=== PATIENT | male | born 1970 | race Caucasian/White ===

== ENCOUNTER 2017-06-24 11:02 | Inpatient (IN) | payer OTHER ==
[2017-06-24] VITALS (11 sets, daily range): BP systolic 123–180; BP diastolic 79–114; PULSE 52–82; RESP 15–20; TEMP 97.1–98.3; O2SAT 92–99
[~2017-06-24] VITALS: Ht 195.6 cm; Wt 127.0 kg
[2017-06-24] MEDS ORDERED: ASPIRIN 81 MG CHEW TAB CHEW STA (11:11)
[2017-06-24] MEDS ORDERED: NITROGLYCERIN 0.4 MG SL 25 TABS/BTL SL ONE (11:12)
[2017-06-24] MEDS ORDERED: NITROGLYCERIN-D5W 50 MG/250 ML 250 ML IV ONE (11:15)
[2017-06-24] MEDS ORDERED: SODIUM CHLORIDE 0.9% FLUSH 10 ML FLUSH IVF PRN (11:15)
[2017-06-24] MEDS ORDERED: HEPARIN-D5W 25,000 U/250 ML 250 ML IV PRN (11:15)
[2017-06-24] MEDS ORDERED: SODIUM CHLORID 0.9% 500 ML INJ 500 ML IV ONE (11:15)
[2017-06-24 11:41] LABS: BASOPHIL # 0.1 TH/MM3 (0-0.2); BASOPHIL % 0.8 % (0.0-2.0); EOSINOPHIL # 0.2 TH/MM3 (0-0.4); EOSINOPHIL % 2.8 % (0.0-4.0); HEMATOCRIT 43.1 % (39.0-51.0); HEMO FLAGS DIFF FINAL; LYMPH % 27.7 % (9.0-44.0); LYMPHOCYTE # 2.3 TH/MM3 (1.0-4.8); MEAN CELL VOLUME 88.1 FL (80.0-100.0); MEAN CORPUSCULAR HGB CONC 35.2 % (32.0-36.0); MONO % 8.9 % (0.0-8.0); NEUT % 59.8 % (16.0-70.0); PLATELET COUNT 204 TH/MM3 (150-450); RED BLOOD COUNT 4.89 MIL/MM3 (4.50-5.90); RED CELL DISTRIBUTION WIDTH 12.1 % (11.6-17.2); WHITE BLOOD COUNT 8.4 TH/MM3 (4.0-11.0)
[2017-06-24] MEDS: NITROGLYCERIN 0.4 MG SL 25 TABS/BTL SL SCH ×2 (11:41→11:44)
[2017-06-24 11:44] LABS: ALT (GPT) 42 U/L (12-78); ANION GAP 5 MEQ/L (5-15); AST (GOT) 27 U/L (15-37); BICARBONATE 31.2 MEQ/L (21.0-32.0); BLOOD UREA NITROGEN 15 MG/DL (7-18); CHLORIDE 102 MEQ/L (98-107); GLOMERULAR FILTRATION RATE 88 ML/MIN (>89); MAGNESIUM 2.2 MG/DL (1.5-2.5); POTASSIUM 3.7 MEQ/L (3.5-5.1); SODIUM (NA) 138 MEQ/L (136-145)
[2017-06-24 11:48] LABS: ALKALINE PHOSPHATASE 34 U/L (45-117); APTT (PATIENT) 27.5 SEC (24.3-30.1); INTERNATIONAL NORMALIZED RATIO 1.1 RATIO; PROTHROMBIN TIME - PATIENT 10.9 SEC (9.8-11.6); TOTAL BILIRUBIN ADULT 0.7 MG/DL (0.2-1.0)
--- NOTE | 2017-06-24 12:17 | RADRPT ---
EXAM DATE/TIME: 06/24/2017 11:30 [place] COMPARISON: No previous studies available for comparison. INDICATIONS : Chest pain started this am. MEDICAL HISTORY : None. SURGICAL HISTORY : None. ENCOUNTER: Initial ACUITY: 1 day PAIN SCORE: 7/10 LOCATION: Bilateral chest FINDINGS: A single view of the chest demonstrates the lungs to be symmetrically aerated without evidence of mas s, infiltrate or effusion. The cardiomediastinal contours are unremarkable. Osseous structures are intact. CONCLUSION: No acute disease. Enzo Darling MD on June 24, 2017 at 12:15 Board Certified Radiologist. This report was verified electronically.
--- NOTE | 2017-06-24 13:42 | PD ---
HPI Chief Complaint: Chest Pain Time Seen by Provider: 11:11 Travel History International Travel<30 days: No Contact w/Intl Traveler<30days: No Traveled to known affect area: No History of Present Illness HPI Is a 47-year-old man who presents to the emergency department complaining of chest pain. 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 Symptoms were persistent throughout the day, and over the course about 15 minutes with severe discomfort, fairly debilitating. Strong family history of heart disease. No personal history. Symptoms abated some an EGD but he still having squeezing discomfort. History Past Medical History Medical History: Denies Significant Hx Tetanus Vaccination: < 5 Years Influenza Vaccination: No Family History Narrative Family History Strong family history of heart disease and early cardiac . Social History Alcohol Use: No Tobacco Use: No Allergies-Medications (Allergen,Severity, Reaction): Coded Allergies: erythromycin base (Verified Allergy, Unknown, 06/24/17) Reported Meds & Prescriptions Reported Meds & Active Scripts Active No Active Prescriptions or Reported Medications Review of Systems Except as stated in HPI: all other systems reviewed are Neg Physical Exam Narrative GENERAL: Well-appearing 47-year-old man, no acute distress. SKIN: Focused skin assessment warm/dry. HEAD: Atraumatic. Normocephalic. CARDIOVASCULAR: Regular rate and rhythm. No murmur appreciated. RESPIRATORY: No accessory muscle use. Clear to auscultation. Breath sounds equal bilaterally. GASTROINTESTINAL: Abdomen soft, non-tender, nondistended. Hepatic and splenic margins not palpable. MUSCULOSKELETAL: No obvious deformities. No clubbing. No cyanosis. No edema. NEUROLOGICAL: Awake and alert. No obvious cranial nerve deficits. Motor grossly within normal limits. Normal speech. PSYCHIATRIC: Appropriate mood and affect; insight and judgment normal. Data Data Last Documented VS Vital Signs Date Time Temp Pulse Resp B/P (MAP) Pulse Ox O2 Delivery O2 Flow Rate FiO2 06/24/17 14:01 52 15 128/87 (101) 99 Nasal Cannula 2.00 06/24/17 11:17 98.0 Orders Orders Nitroglycerin Sl (Nitrostat Sl) (06/24/17 11:12) Electrocardiogram (06/24/17 11:11) Complete Blood Count With Diff (06/24/17 11:11) Comprehensive Metabolic Panel (06/24/17 11:11) Magnesium (Mg) (06/24/17 11:11) Prothrombin Time / Inr (Pt) (06/24/17 11:11) Act Partial Throm Time (Ptt) (06/24/17 11:11) Troponin I (06/24/17 11:11) Lipase (06/24/17 11:11) Chest, Single Ap (06/24/17 11:11) Ecg Monitoring (06/24/17 11:11) Bilateral Bp Monitoring (06/24/17 11:11) Iv Access Insert/Monitor (06/24/17 11:11) Oximetry (06/24/17 11:11) Oxygen Administration (06/24/17 11:11) Nitroglycerin-D5w 50 Mg/250 Ml (Nitrogly (06/24/17 11:15) Sodium Chloride 0.9% Flush (Ns Flush) (06/24/17 11:15) Nitroglycerin Sl (Nitrostat Sl) (06/24/17 11:15) Sodium Chlorid 0.9% 500 Ml Inj (Ns 500 M (06/24/17 11:15) Heparin Inj (Heparin Inj) (06/24/17 14:00) Heparin Inj (Heparin Inj) (06/24/17 14:00) Heparin-D5w 25,000 U/250 Ml (Heparin-D5w (06/24/17 11:15) Cbc No Diff, Includes Plts (06/27/17 06:00) Act Partial Throm Time (Ptt) (06/24/17 18:11) Occult Blood (Hemoccult) Stool (06/24/17 11:11) Aspirin Chew (Aspirin Chew) (06/24/17 11:11) Heparin-D5w 25,000 U/250 Ml (Heparin-D5w (06/24/17 12:45) Admit Order (Ed Use Only) (06/24/17 ) Labs Laboratory Tests Test 06/24/17 11:15 White Blood Count 8.4 TH/MM3 Red Blood Count 4.89 MIL/MM3 Hemoglobin 15.2 GM/DL Hematocrit 43.1 % Mean Corpuscular Volume 88.1 FL Mean Corpuscular Hemoglobin 31.0 PG Mean Corpuscular Hemoglobin Concent 35.2 % Red Cell Distribution Width 12.1 % Platelet Count 204 TH/MM3 Mean Platelet Volume 8.0 FL Neutrophils (%) (Auto) 59.8 % Lymphocytes (%) (Auto) 27.7 % Monocytes (%) (Auto) 8.9 % Eosinophils (%) (Auto) 2.8 % Basophils (%) (Auto) 0.8 % Neutrophils # (Auto) 5.0 TH/MM3 Lymphocytes # (Auto) 2.3 TH/MM3 Monocytes # (Auto) 0.7 TH/MM3 Eosinophils # (Auto) 0.2 TH/MM3 Basophils # (Auto) 0.1 TH/MM3 CBC Comment DIFF FINAL Differential Comment Prothrombin Time 10.9 SEC Prothromb Time International Ratio 1.1 RATIO Activated Partial Thromboplast Time 27.5 SEC Blood Urea Nitrogen 15 MG/DL Creatinine 0.92 MG/DL Random Glucose 90 MG/DL Total Protein 8.2 GM/DL Albumin 4.3 GM/DL Calcium Level 8.9 MG/DL Magnesium Level 2.2 MG/DL Alkaline Phosphatase 34 U/L Aspartate Amino Transf (AST/SGOT) 27 U/L Alanine Aminotransferase (ALT/SGPT) 42 U/L Total Bilirubin 0.7 MG/DL Sodium Level 138 MEQ/L Potassium Level 3.7 MEQ/L Chloride Level 102 MEQ/L Carbon Dioxide Level 31.2 MEQ/L Anion Gap 5 MEQ/L Estimat Glomerular Filtration Rate 88 ML/MIN Troponin I LESS THAN 0.02 NG/ML Lipase 152 U/L MDM Medical Decision Making Medical Screen Exam Complete: Yes Emergency Medical Condition: Yes Interpretation(s) My review of EKG: Sinus bradycardia rate of 59, normal axis, normal intervals, no definite evidence of acute ischemia. LABS: CBC is unremarkable. CMP is unremarkable. Troponin negative. Lipase is normal. Coags unremarkable. Chest x-ray Differential Diagnosis ACS, dissection, gastritis, other Narrative Course Medical decision making INITIAL: Is a 47-year-old man with a strong family history of heart disease, presents complaining of squeezing chest discomfort a history strongly suggestive of ACS. Given this, high pretest suspicion for ACS. We'll start on heparin, nitroglycerin, spoke with Dr. colin cardiology will consult on the patient, will admit for acute coronary syndrome. Diagnosis Primary Impression: ACS (acute coronary syndrome) Admitting Information Admitting Physician Requests: Admit Scripts No Active Prescriptions or Reported Meds Filemon Albarran MD Jun 24, 2017 13:42
[2017-06-24] MEDS: HEPARIN-D5W 25,000 U/250 ML 250 ML IV PRN (14:00)
[2017-06-24] MEDS ORDERED: HEPARIN SODIUM - IV 10,000 UNITS/10 ML VIAL IV PUSH PRN (14:00)
[2017-06-24] MEDS: HEPARIN SODIUM - IV 10,000 UNITS/10 ML VIAL IV PUSH PRN ×2 (14:00→23:45)
[2017-06-24] MEDS ORDERED: NALOXONE HCL 0.4 MG/ML AMP IV PUSH PRN (14:15)
[2017-06-24] MEDS ORDERED: TEMAZEPAM 15 MG CAP PO PRN (14:15)
[2017-06-24] MEDS ORDERED: MAGNESIUM HYDROXIDE SUSP 30 ML CUP PO PRN (14:15)
[2017-06-24] MEDS ORDERED: ONDANSETRON HCL 4 MG/2 ML VIAL IVP PRN (14:15)
[2017-06-24] MEDS ORDERED: NITROGLYCERIN 0.4 MG SL 25 TABS/BTL SL PRN (14:15)
[2017-06-24] MEDS ORDERED: SODIUM CHLORIDE 0.9% FLUSH 10 ML FLUSH IV FLUSH PRN (14:15)
[2017-06-24] MEDS ORDERED: ACETAMINOPHEN 325 MG TAB PO PRN (14:15)
--- NOTE | 2017-06-24 14:18 | EKG ---
Date Performed: 06/24/2017 Time Performed: 11:08:35 PTAGE: 47 years EKG: SINUS BRADYCARDIA WITH FIRST DEGREE AV BLOCK Right bundle branch block ABNORMAL ECG NO PREVIOUS TRACING DOCTOR: Liu Winkler Interpretating Date/Time 06/24/2017 14:17:06
--- NOTE | 2017-06-24 18:37 | HHI.HP ---
HPI Service [facility] Hospitalists Primary Care Physician Jhoan Bullard MD Admission Diagnosis ACS Chief Complaint: Chest pain Travel History International Travel<30 Days: No Contact w/Intl Traveler <30 Da: No Traveled to Known Affected Are: No History of Present Illness This 47-year-old male patient with past medical history which includes Ramos' s esophagitis. 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 Patient then had to sit down due to the pain. Patient also had diaphoresis, shortness of breath and oozy feeling. Patient reports the chest pain lasted for about 1.5 hours. Chest pain was relieved by nitroglycerin given in the ER. Patient endorses strong family history of heart disease. Patient's father had his first [place] at age 42. Patient himself has never been diagnosed with coronary artery disease. Patient denies fevers chills vomiting diarrhea constipation shortness of breath or cough Review of Systems Constitutional: COMPLAINS OF: Diaphoretic episodes, DENIES: Fatigue, Fever Eyes: DENIES: Blurred vision, Diplopia, Vision loss Respiratory: COMPLAINS OF: Shortness of breath, DENIES: Cough, Sputum production Cardiovascular: COMPLAINS OF: Chest pain, Syncope, DENIES: Dyspnea on Exertion , Lower Extremity Edema Neurologic: DENIES: Abnormal gait, Headache, Localized weakness, Speech Problems Psychiatric: DENIES: Anxiety, Confusion, Depression Past Family Social History Past Medical History Agoraphobia and Ramos's esophagitis Past Surgical History EGD bilateral inguinal hernia repair Reported Medications Protonix 40 mg by mouth daily Allergies: Coded Allergies: erythromycin base (Verified Allergy, Unknown, 06/24/17) Active Ordered Medications Current Medications Medications (Trade) Dose Ordered Sig/Edi Route Start Time Stop Time Status Last Admin Nitroglycerin/ Dextrose 250 ml @ 1.5 mls/hr TITRATE ONCE IV 06/24/17 11:15 07/01/17 09:54 06/24/17 11:43 (Heparin Inj) 5,000 units UNSCH PRN IV PUSH 06/24/17 14:00 (Heparin Inj) 2,500 units UNSCH PRN IV PUSH 06/24/17 14:00 06/24/17 14:00 Heparin Sodium/ Dextrose 250 ml @ 10 mls/hr TITRATE PRN IV 06/24/17 12:45 06/24/17 14:00 (NS Flush) 2 ml UNSCH PRN IV FLUSH 06/24/17 14:15 (NS Flush) 2 ml BID IV FLUSH 06/24/17 21:00 (Tylenol) 650 mg Q4H PRN PO 06/24/17 14:15 (Zofran Inj) 4 mg Q6H PRN IVP 06/24/17 14:15 (Restoril) 15 mg HS PRN PO 06/24/17 14:15 (Narcan Inj) 0.4 mg UNSCH PRN IV PUSH 06/24/17 14:15 (Milk Of Luba Liq) 30 ml Q12H PRN PO 06/24/17 14:15 (Aspirin) 325 mg DAILY PO 06/25/17 09:00 (Nitrostat Sl) 0.4 mg Q5M PRN SL 06/24/17 14:15 Family History Coronary artery disease and cardiac Social History Patient works as a sed middle school teacher Denies tobacco use Denies illicit drug use Physical Exam Vital Signs Vital Signs Date Time Temp Pulse Resp B/P (MAP) Pulse Ox O2 Delivery O2 Flow Rate FiO2 06/24/17 16:54 68 15 135/95 (108) 98 Nasal Cannula 2.00 06/24/17 16:52 60 15 123/84 (97) 98 Nasal Cannula 2.00 06/24/17 14:01 52 15 128/87 (101) 99 Nasal Cannula 2.00 06/24/17 11:50 53 16 128/85 (99) 06/24/17 11:48 15 06/24/17 11:43 71 145/89 06/24/17 11:40 56 123/83 (96) 06/24/17 11:20 59 16 99 Nasal Cannula 2.00 06/24/17 11:20 71 16 145/89 (107) 96 Nasal Cannula 2.00 06/24/17 11:20 98 Nasal Cannula 2.00 06/24/17 11:20 68 15 145/89 (107) 95 Nasal Cannula 2.00 06/24/17 11:19 59 172/106 (128) 180/114 (136) 06/24/17 11:17 98.0 59 16 172/106 (128) 97 Physical Exam GENERAL: This is a well-nourished, well-developed patient, in no apparent distress. SKIN: No rashes, ecchymoses or lesions. Cool and dry. HEAD: Atraumatic. Normocephalic. No temporal or scalp tenderness. EYES: Extraocular motions intact. No scleral icterus. No injection or drainage. CARDIOVASCULAR: Regular rate and rhythm RESPIRATORY: Clear to auscultation. Breath sounds equal bilaterally. GASTROINTESTINAL: Abdomen soft, non-tender, nondistended. No guarding. MUSCULOSKELETAL: Extremities without clubbing, cyanosis, or edema. No joint tenderness, effusion, or edema noted. No calf tenderness. Negative Homans sign bilaterally. NEUROLOGICAL: Awake and alert. No focal deficits. Motor and sensory grossly within normal limits. Five out of 5 muscle strength in all muscle groups. Normal speech. Laboratory Laboratory Tests Test 06/24/17 11:15 White Blood Count 8.4 Red Blood Count 4.89 Hemoglobin 15.2 Hematocrit 43.1 Mean Corpuscular Volume 88.1 Mean Corpuscular Hemoglobin 31.0 Mean Corpuscular Hemoglobin Concent 35.2 Red Cell Distribution Width 12.1 Platelet Count 204 Mean Platelet Volume 8.0 Neutrophils (%) (Auto) 59.8 Lymphocytes (%) (Auto) 27.7 Monocytes (%) (Auto) 8.9 Eosinophils (%) (Auto) 2.8 Basophils (%) (Auto) 0.8 Neutrophils # (Auto) 5.0 Lymphocytes # (Auto) 2.3 Monocytes # (Auto) 0.7 Eosinophils # (Auto) 0.2 Basophils # (Auto) 0.1 CBC Comment DIFF FINAL Differential Comment Prothrombin Time 10.9 Prothromb Time International Ratio 1.1 Activated Partial Thromboplast Time 27.5 Blood Urea Nitrogen 15 Creatinine 0.92 Random Glucose 90 Total Protein 8.2 Albumin 4.3 Calcium Level 8.9 Magnesium Level 2.2 Alkaline Phosphatase 34 Aspartate Amino Transf (AST/SGOT) 27 Alanine Aminotransferase (ALT/SGPT) 42 Total Bilirubin 0.7 Sodium Level 138 Potassium Level 3.7 Chloride Level 102 Carbon Dioxide Level 31.2 Anion Gap 5 Estimat Glomerular Filtration Rate 88 Troponin I LESS THAN 0.02 Lipase 152 Result Diagram: 06/24/17 1115 06/24/17 1115 Imaging Last Impressions Chest X-Ray 06/24/17 1111 Signed Impressions: Service Date/Time: Saturday, June 24, 2017 11:30 - CONCLUSION: No acute disease. MD Donna Galeana VTE Risk Assessment Caprini VTE Risk Assessment: No/Low Risk (score <= 1) Caprini Risk Assessment Model Point Value = 1 Point Value = 2 Point Value = 3 Point Value = 5 Age 41-60 Minor surgery BMI > 25 kg/m2 Swollen legs Varicose veins or History of unexplained or recurrent spontaneous Oral contraceptives or hormone replacement Sepsis (< 1 month) Serious lung disease, including pneumonia (< 1 month) Abnormal pulmonary function Acute myocardial infarction Congestive heart failure (< 1 month) History of inflammatory bowel disease Medical patient at bed rest Age 61-74 Arthroscopic surgery Major open surgery (> 45 min) Laparoscopic surgery (> 45 min) Malignancy Confined to bed (> 72 hours) Immobilizing plaster cast Central venous access Age >= 75 History of VTE Family history of VTE Factor V Leiden Prothrombin [id number] Lupus anticoagulant Anticardiolipin antibodies Elevated serum homocysteine Heparin-induced thrombocytopenia Other congenital or acquired thrombophilia Stroke (< 1 month) Elective arthroplasty Hip, pelvis, or leg fracture Acute spinal cord injury (< 1 month) Prophylaxis Regimen Total Risk Factor Score Risk Level Prophylaxis Regimen 0-1 Low Early ambulation 2 Moderate Order ONE of the following: *Sequential Compression Device (SCD) *Heparin 5000 units SQ BID 3-4 Higher Order ONE of the following medications: *Heparin 5000 units SQ TID *Enoxaparin/Lovenox 40 mg SQ daily (WT < 150 kg, CrCl > 30 mL/min) *Enoxaparin/Lovenox 30 mg SQ daily (WT < 150 kg, CrCl > 10-29 mL/min) *Enoxaparin/Lovenox 30 mg SQ BID (WT < 150 kg, CrCl > 30 mL/min) AND/OR *Sequential Compression Device (SCD) 5 or more Highest Order ONE of the following medications: *Heparin 5000 units SQ TID (Preferred with Epidurals) *Enoxaparin/Lovenox 40 mg SQ daily (WT < 150 kg, CrCl > 30 mL/min) *Enoxaparin/Lovenox 30 mg SQ daily (WT < 150 kg, CrCl > 10-29 mL/min) *Enoxaparin/Lovenox 30 mg SQ BID (WT < 150 kg, CrCl > 30 mL/min) AND *Sequential Compression Device (SCD) Assessment and Plan Problem List: (1) ACS (acute coronary syndrome) ICD Codes: I24.9 - Acute ischemic heart disease, unspecified Status: Acute Plan: Chest pain rule out acute coronary syndrome Due to high suspicion for acute coronary syndrome patient was started on heparin drip and nitroglycerin drip and case was discussed with cardiology DrCindy colin We'll continue heparin and nitroglycerin drip Aspirin daily Lipid profile ordered 2 D echocardiogram Patient made nothing by mouth after midnight Consult placed to cardiology Continue serial troponin and EKG Urine toxicology screen pending (2) Ramos's esophagus with esophagitis ICD Codes: K22.70 - Ramos's esophagus without dysplasia; K20.9 - Esophagitis , unspecified Plan: Protonix Physician Certification 2 Midnight Certification Type: Admission for Inpatient Services Order for Inpatient Services The services are ordered in accordance with Medicare regulations or non- Medicare payer requirements, as applicable. In the case of services not specified as inpatient-only, they are appropriately provided as inpatient services in accordance with the 2-midnight benchmark. Estimated LOS (days): 3 days is the estimated time the patient will need to remain in the hospital, assuming treatment plan goals are met and no additional complications. Post-Hospital Plan: Home Caitlyn Melton Jun 24, 2017 18:37
[2017-06-24] MEDS: SODIUM CHLORIDE 0.9% FLUSH 10 ML FLUSH IV FLUSH SCH (21:00)
[2017-06-24] MEDS: NITROGLYCERIN 2% OINT 1 GM PACKET TOPICAL SCH (23:00)
[2017-06-24 23:05] LABS: MAGNESIUM 2.1 MG/DL (1.5-2.5)
[2017-06-24 23:30] LABS: APTT (PATIENT) 32.8 SEC (24.3-30.1)
[2017-06-25] VITALS (7 sets, daily range): BP systolic 119–166; BP diastolic 63–95; PULSE 54–100; RESP 18–20; TEMP 97.5–98.5; O2SAT 94–98
[2017-06-25 03:27] LABS: CREATINE KINASE 138 U/L (39-308)
[2017-06-25] MEDS: NITROGLYCERIN 2% OINT 1 GM PACKET TOPICAL SCH ×2 (05:23→11:26)
[2017-06-25 06:42] LABS: AUTOMATED NEUTROPHIL # 4.8 TH/MM3 (1.8-7.7); BASOPHIL # 0.1 TH/MM3 (0-0.2); BASOPHIL % 0.8 % (0.0-2.0); EOSINOPHIL # 0.3 TH/MM3 (0-0.4); EOSINOPHIL % 3.4 % (0.0-4.0); HEMATOCRIT 41.2 % (39.0-51.0); HEMO FLAGS DIFF FINAL; LYMPH % 32.8 % (9.0-44.0); LYMPHOCYTE # 2.8 TH/MM3 (1.0-4.8); MEAN CELL VOLUME 87.1 FL (80.0-100.0); MEAN CORPUSCULAR HEMOGLOBIN 30.1 PG (27.0-34.0); MEAN CORPUSCULAR HGB CONC 34.6 % (32.0-36.0); PLATELET COUNT 189 TH/MM3 (150-450); RED BLOOD COUNT 4.73 MIL/MM3 (4.50-5.90); RED CELL DISTRIBUTION WIDTH 12.3 % (11.6-17.2); WHITE BLOOD COUNT 8.7 TH/MM3 (4.0-11.0)
[2017-06-25 06:48] LABS: APTT (PATIENT) 39.2 SEC (24.3-30.1)
[2017-06-25 07:04] LABS: BICARBONATE 27.8 MEQ/L (21.0-32.0); POTASSIUM 3.6 MEQ/L (3.5-5.1)
[2017-06-25 07:07] LABS: HDL CHOLESTEROL 44.5 MG/DL (40.0-60.0)
--- NOTE | 2017-06-25 08:44 | PD.CONS ---
HPI Service [facility] Hospitalists Consult Requested By Primary Care Physician Jhoan Bullard MD Diagnoses: (1) ACS (acute coronary syndrome) (2) Ramos's esophagus with esophagitis Past Family Social History Allergies: Coded Allergies: erythromycin base (Verified Allergy, Unknown, 06/24/17) Physical Exam Vital Signs Vital Signs Date Time Temp Pulse Resp B/P (MAP) Pulse Ox O2 Delivery O2 Flow Rate FiO2 06/25/17 08:02 97.8 62 20 125/84 (98) 96 06/25/17 04:18 97.8 56 18 119/63 (81) 94 06/24/17 23:22 97.1 74 18 142/79 (100) 92 06/24/17 20:23 98.3 65 18 148/88 (108) 96 06/24/17 19:13 98.0 82 20 155/92 (113) 94 06/24/17 16:54 68 15 135/95 (108) 98 Nasal Cannula 2.00 06/24/17 16:52 60 15 123/84 (97) 98 Nasal Cannula 2.00 06/24/17 14:01 52 15 128/87 (101) 99 Nasal Cannula 2.00 06/24/17 11:50 53 16 128/85 (99) 06/24/17 11:48 15 06/24/17 11:43 71 145/89 06/24/17 11:40 56 123/83 (96) 06/24/17 11:20 59 16 99 Nasal Cannula 2.00 06/24/17 11:20 71 16 145/89 (107) 96 Nasal Cannula 2.00 06/24/17 11:20 98 Nasal Cannula 2.00 06/24/17 11:20 68 15 145/89 (107) 95 Nasal Cannula 2.00 06/24/17 11:19 59 172/106 (128) 180/114 (136) 06/24/17 11:17 98.0 59 16 172/106 (128) 97 Physical Exam GENERAL: This is a well-nourished, well-developed patient, in no apparent distress. SKIN: No rashes, ecchymoses or lesions. Cool and dry. HEAD: Atraumatic. Normocephalic. No temporal or scalp tenderness. EYES: Pupils equal round and reactive. Extraocular motions intact. No scleral icterus. No injection or drainage. ENT: Nose without bleeding, purulent drainage or septal hematoma. Throat without erythema, tonsillar hypertrophy or exudate. Uvula midline. Airway patent. NECK: Trachea midline. No JVD or lymphadenopathy. Supple, nontender, no meningeal signs. CARDIOVASCULAR: Regular rate and rhythm without murmurs, gallops, or rubs. RESPIRATORY: Clear to auscultation. Breath sounds equal bilaterally. No wheezes , rales, or rhonchi. GASTROINTESTINAL: Abdomen soft, non-tender, nondistended. No hepato-splenomegaly , or palpable masses. No guarding. MUSCULOSKELETAL: Extremities without clubbing, cyanosis, or edema. No joint tenderness, effusion, or edema noted. No calf tenderness. Negative Homans sign bilaterally. NEUROLOGICAL: Awake and alert. Cranial nerves II through XII intact. Motor and sensory grossly within normal limits. Five out of 5 muscle strength in all muscle groups. Normal speech. Laboratory Laboratory Tests Test 06/24/17 11:15 06/24/17 21:00 06/24/17 22:22 06/24/17 23:07 White Blood Count 8.4 Red Blood Count 4.89 Hemoglobin 15.2 Hematocrit 43.1 Mean Corpuscular Volume 88.1 Mean Corpuscular Hemoglobin 31.0 Mean Corpuscular Hemoglobin Concent 35.2 Red Cell Distribution Width 12.1 Platelet Count 204 Mean Platelet Volume 8.0 Neutrophils (%) (Auto) 59.8 Lymphocytes (%) (Auto) 27.7 Monocytes (%) (Auto) 8.9 Eosinophils (%) (Auto) 2.8 Basophils (%) (Auto) 0.8 Neutrophils # (Auto) 5.0 Lymphocytes # (Auto) 2.3 Monocytes # (Auto) 0.7 Eosinophils # (Auto) 0.2 Basophils # (Auto) 0.1 CBC Comment DIFF FINAL Differential Comment Prothrombin Time 10.9 Prothromb Time International Ratio 1.1 Activated Partial Thromboplast Time 27.5 32.8 Blood Urea Nitrogen 15 Creatinine 0.92 Random Glucose 90 Total Protein 8.2 Albumin 4.3 Calcium Level 8.9 Magnesium Level 2.2 2.1 Alkaline Phosphatase 34 Aspartate Amino Transf (AST/SGOT) 27 Alanine Aminotransferase (ALT/SGPT) 42 Total Bilirubin 0.7 Sodium Level 138 Potassium Level 3.7 Chloride Level 102 Carbon Dioxide Level 31.2 Anion Gap 5 Estimat Glomerular Filtration Rate 88 Troponin I LESS THAN 0.02 LESS THAN 0.02 Lipase 152 Urine Opiates Screen NEG Urine Barbiturates Screen NEG Urine Amphetamines Screen NEG Urine Benzodiazepines Screen NEG Urine Cocaine Screen NEG Urine Cannabinoids Screen NEG Total Creatine Kinase 153 Test 06/25/17 02:40 06/25/17 05:15 Total Creatine Kinase 138 White Blood Count 8.7 Red Blood Count 4.73 Hemoglobin 14.3 Hematocrit 41.2 Mean Corpuscular Volume 87.1 Mean Corpuscular Hemoglobin 30.1 Mean Corpuscular Hemoglobin Concent 34.6 Red Cell Distribution Width 12.3 Platelet Count 189 Mean Platelet Volume 7.9 Neutrophils (%) (Auto) 55.0 Lymphocytes (%) (Auto) 32.8 Monocytes (%) (Auto) 8.0 Eosinophils (%) (Auto) 3.4 Basophils (%) (Auto) 0.8 Neutrophils # (Auto) 4.8 Lymphocytes # (Auto) 2.8 Monocytes # (Auto) 0.7 Eosinophils # (Auto) 0.3 Basophils # (Auto) 0.1 CBC Comment DIFF FINAL Differential Comment Activated Partial Thromboplast Time 39.2 Blood Urea Nitrogen 14 Creatinine 0.82 Random Glucose 91 Calcium Level 8.2 Sodium Level 138 Potassium Level 3.6 Chloride Level 104 Carbon Dioxide Level 27.8 Anion Gap 6 Estimat Glomerular Filtration Rate 100 Triglycerides Level 126 Cholesterol Level 170 LDL Cholesterol 100 HDL Cholesterol 44.5 Cholesterol/HDL Ratio 3.82 Result Diagram: 06/25/1751406/25/17514 Assessment and Plan Problem List: (1) ACS (acute coronary syndrome) ICD Code: I24.9 - Acute ischemic heart disease, unspecified Status: Acute Plan: Chest pain rule out acute coronary syndrome Due to high suspicion for acute coronary syndrome patient was started on heparin drip and nitroglycerin drip and case was discussed with cardiology Dr. colin We'll continue heparin and nitroglycerin drip Aspirin daily Lipid profile ordered 2 D echocardiogram Patient made nothing by mouth after midnight Consult placed to cardiology Continue serial troponin and EKG Urine toxicology screen pending (2) Ramos's esophagus with esophagitis ICD Code: K22.70 - Ramos's esophagus without dysplasia; K20.9 - Esophagitis, unspecified Plan: Rg Chu Jun 25, 2017 08:44
--- NOTE | 2017-06-25 08:48 | PD.CONS ---
HPI Consult Requested By Primary Care Physician Jhoan Bullard MD History of Present Illness 47-year-old male with past history of allergies who presented for chest pain. The patient works as a aerobics teacher and yesterday while teaching developed some numbness and squeezing sensation in his left arm that then spread to the left side of his chest. His symptoms lasted for about an hour and 10 minutes until he arrived in the ED and received nitroglycerin which helped relieve the pain. Overnight the patient had a few seconds of the left shoulder pain again. Prior to yesterday the patient has not had any symptoms like this before, however does not stay very active. He does not smoke. His father has a history of heart disease with first OR at age 42. Review of Systems Negative except as stated in the history of present illness Past Family Social History Allergies: Coded Allergies: erythromycin base (Verified Allergy, Unknown, 06/24/17) Past Medical History Ramos's esophagus Past Surgical History EGD bilateral inguinal hernia repair Reported Medications None Active Ordered Medications Current Medications Medications (Trade) Dose Ordered Sig/Edi Route Start Time Stop Time Status Last Admin (Heparin Inj) 5,000 units UNSCH PRN IV PUSH 06/24/17 14:00 (Heparin Inj) 2,500 units UNSCH PRN IV PUSH 06/24/17 14:00 06/24/17 23:45 Heparin Sodium/ Dextrose 250 ml @ 10 mls/hr TITRATE PRN IV 06/24/17 12:45 06/24/17 14:00 (NS Flush) 2 ml UNSCH PRN IV FLUSH 06/24/17 14:15 (NS Flush) 2 ml BID IV FLUSH 06/24/17 21:00 (Tylenol) 650 mg Q4H PRN PO 06/24/17 14:15 06/24/17 22:47 (Zofran Inj) 4 mg Q6H PRN IVP 06/24/17 14:15 (Restoril) 15 mg HS PRN PO 06/24/17 14:15 (Narcan Inj) 0.4 mg UNSCH PRN IV PUSH 06/24/17 14:15 (Milk Of Magnesia Liq) 30 ml Q12H PRN PO 06/24/17 14:15 (Aspirin) 325 mg DAILY PO 06/25/17 09:00 (Nitrostat Sl) 0.4 mg Q5M PRN SL 06/24/17 14:15 (Protonix) 40 mg DAILY PO 06/25/17 09:00 (Nitroglycerin 2% Oint) 0.5 inch Q6H TOPICAL 06/24/17 23:00 06/25/17 05:23 Family History Father with OR age 42 Social History Patient works as a bilingual teacher aide Denies tobacco use Denies illicit drug use Physical Exam Vital Signs Vital Signs Date Time Temp Pulse Resp B/P (MAP) Pulse Ox O2 Delivery O2 Flow Rate FiO2 06/25/17 08:02 97.8 62 20 125/84 (98) 96 06/25/17 04:18 97.8 56 18 119/63 (81) 94 06/24/17 23:22 97.1 74 18 142/79 (100) 92 06/24/17 20:23 98.3 65 18 148/88 (108) 96 06/24/17 19:13 98.0 82 20 155/92 (113) 94 06/24/17 16:54 68 15 135/95 (108) 98 Nasal Cannula 2.00 06/24/17 16:52 60 15 123/84 (97) 98 Nasal Cannula 2.00 06/24/17 14:01 52 15 128/87 (101) 99 Nasal Cannula 2.00 06/24/17 11:50 53 16 128/85 (99) 06/24/17 11:48 15 06/24/17 11:43 71 145/89 06/24/17 11:40 56 123/83 (96) 06/24/17 11:20 59 16 99 Nasal Cannula 2.00 06/24/17 11:20 71 16 145/89 (107) 96 Nasal Cannula 2.00 06/24/17 11:20 98 Nasal Cannula 2.00 06/24/17 11:20 68 15 145/89 (107) 95 Nasal Cannula 2.00 06/24/17 11:19 59 172/106 (128) 180/114 (136) 06/24/17 11:17 98.0 59 16 172/106 (128) 97 Physical Exam GENERAL: Well-developed well-nourished. In no acute distress. NECK: No carotid bruits. No JVD. CARDIOVASCULAR: Regular rate and rhythm. No murmur appreciated. RESPIRATORY: No accessory muscle use. Clear to auscultation. Breath sounds equal bilaterally. MUSCULOSKELETAL: No clubbing or cyanosis. No edema. NEUROLOGICAL: Awake and alert. Normal speech. Laboratory Laboratory Tests Test 06/24/17 11:15 06/24/17 21:00 06/24/17 22:22 06/24/17 23:07 White Blood Count 8.4 Red Blood Count 4.89 Hemoglobin 15.2 Hematocrit 43.1 Mean Corpuscular Volume 88.1 Mean Corpuscular Hemoglobin 31.0 Mean Corpuscular Hemoglobin Concent 35.2 Red Cell Distribution Width 12.1 Platelet Count 204 Mean Platelet Volume 8.0 Neutrophils (%) (Auto) 59.8 Lymphocytes (%) (Auto) 27.7 Monocytes (%) (Auto) 8.9 Eosinophils (%) (Auto) 2.8 Basophils (%) (Auto) 0.8 Neutrophils # (Auto) 5.0 Lymphocytes # (Auto) 2.3 Monocytes # (Auto) 0.7 Eosinophils # (Auto) 0.2 Basophils # (Auto) 0.1 CBC Comment DIFF FINAL Differential Comment Prothrombin Time 10.9 Prothromb Time International Ratio 1.1 Activated Partial Thromboplast Time 27.5 32.8 Blood Urea Nitrogen 15 Creatinine 0.92 Random Glucose 90 Total Protein 8.2 Albumin 4.3 Calcium Level 8.9 Magnesium Level 2.2 2.1 Alkaline Phosphatase 34 Aspartate Amino Transf (AST/SGOT) 27 Alanine Aminotransferase (ALT/SGPT) 42 Total Bilirubin 0.7 Sodium Level 138 Potassium Level 3.7 Chloride Level 102 Carbon Dioxide Level 31.2 Anion Gap 5 Estimat Glomerular Filtration Rate 88 Troponin I LESS THAN 0.02 LESS THAN 0.02 Lipase 152 Urine Opiates Screen NEG Urine Barbiturates Screen NEG Urine Amphetamines Screen NEG Urine Benzodiazepines Screen NEG Urine Cocaine Screen NEG Urine Cannabinoids Screen NEG Total Creatine Kinase 153 Test 06/25/17 02:40 06/25/17 05:15 Total Creatine Kinase 138 White Blood Count 8.7 Red Blood Count 4.73 Hemoglobin 14.3 Hematocrit 41.2 Mean Corpuscular Volume 87.1 Mean Corpuscular Hemoglobin 30.1 Mean Corpuscular Hemoglobin Concent 34.6 Red Cell Distribution Width 12.3 Platelet Count 189 Mean Platelet Volume 7.9 Neutrophils (%) (Auto) 55.0 Lymphocytes (%) (Auto) 32.8 Monocytes (%) (Auto) 8.0 Eosinophils (%) (Auto) 3.4 Basophils (%) (Auto) 0.8 Neutrophils # (Auto) 4.8 Lymphocytes # (Auto) 2.8 Monocytes # (Auto) 0.7 Eosinophils # (Auto) 0.3 Basophils # (Auto) 0.1 CBC Comment DIFF FINAL Differential Comment Activated Partial Thromboplast Time 39.2 Blood Urea Nitrogen 14 Creatinine 0.82 Random Glucose 91 Calcium Level 8.2 Sodium Level 138 Potassium Level 3.6 Chloride Level 104 Carbon Dioxide Level 27.8 Anion Gap 6 Estimat Glomerular Filtration Rate 100 Triglycerides Level 126 Cholesterol Level 170 LDL Cholesterol 100 HDL Cholesterol 44.5 Cholesterol/HDL Ratio 3.82 Result Diagram: 06/25/17 0515 06/25/17 0515 Imaging Last Impressions Chest X-Ray 06/24/17 1111 Signed Impressions: Service Date/Time: Saturday, June 24, 2017 11:30 - CONCLUSION: No acute disease. Enzo Darling MD Assessment and Plan Assessment and Plan 47-year-old male with past history of allergies who presented for chest pain Chest pain: With some typical features, however EKG and troponins have been negative. We'll proceed with Lexiscan today. Discussed Condition With Rg Corrales Jun 25, 2017 08:48
[2017-06-25] MEDS: SODIUM CHLORIDE 0.9% FLUSH 10 ML FLUSH IV FLUSH SCH ×2 (09:00→20:51)
[2017-06-25] MEDS: HEPARIN-D5W 25,000 U/250 ML 250 ML IV PRN ×2 (11:30→13:52)
[2017-06-25] MEDS ORDERED: REGADENOSON INJ 0.4 MG/5 ML SYR ONE (12:19)
--- NOTE | 2017-06-25 14:10 | EKG ---
Date Performed: 06/24/2017 Time Performed: 22:03:17 PTAGE: 47 years EKG: RIGHT BUNDLE BRANCH BLOCK POOR R-WAVE PROGRESSION V1 AND V2, WHICH MAY BE NORMAL VARIANT Co mpared to previous tracing, HI interval slightly shorter, otherwise no significant change. ABNORMAL E CG PREVIOUS TRACING : 06/24/2017 11.08 DOCTOR: Maury Buck Interpretating Date/Time 06/25/2017 14:08:22
--- NOTE | 2017-06-25 14:10 | EKG ---
Date Performed: 06/25/2017 Time Performed: 02:10:50 PTAGE: 47 years EKG: Sinus rhythm with borderline 1st degree A-V block Incomplete LBBB Poor R wave progression - probable normal varia nt Low QRS voltages in precordial leads Abnormal ECG Since PREVIOUS TRACING , no significant change noted PREVIOUS TRACING 06/24/2017 22.03.17 DOCTOR: Maury Buck Interpretating Date/Time 06/25/2017 14:09:02
[2017-06-25] MEDS: ASPIRIN 325 MG TAB PO SCH (14:14)
[2017-06-25] MEDS: PANTOPRAZOLE SOD 40 MG DELAYED RELEASE TAB PO SCH (14:14)
--- NOTE | 2017-06-25 14:43 | ECHRPT ---
Indication: cp CONCLUSIONS The left ventricular systolic function is low normal with an estimated ejection fraction in the rang e of 50- 55%. Normal left ventricular size. Mild concentric left ventricular hypertrophy. [id number] mitral valve regurgitation. No aortic valve regurgitation. No aortic valve stenosis. There is mild tricuspid valve regurgitation. The estimated pulmonary arterial pressure is 36.8 mmHg. There is a prominent moderator band observed in the right ventricle (benign finding). BP: / HR: Rhythm: MEASUREMENTS (Male / Female) Normal Values Technical Quality:Good 2D ECHO LV Diastolic Diameter PLAX 4.6 cm 4.2 - 5.9 / 3.9 - 5.3 cm LV Systolic Diameter PLAX 3.6 cm IVS Diastolic Thickness 1.2 cm 0.6 - 1.0 / 0.6 - 0.9 cm LVPW Diastolic Thickness 1.2 cm 0.6 - 1.0 / 0.6 - 0.9 cm LV Relative Wall Thickness 0.5 RV Internal Dim ED PLAX 3.3 cm M-MODE Aortic Root Diameter MM 3.5 cm LA Systolic Diameter MM 3.7 cm LA Ao Ratio MM 1.1 AV Cusp Separation MM 2.4 cm DOPPLER Mitral E Point Velocity 47.4 cm/s Mitral A Point Velocity 47.4 cm/s Mitral E to A Ratio 1.0 LV E' Lateral Velocity 15.7 cm/s Mitral E to LV E' Lateral Ratio 3.0 LV E' Septal Velocity 10.6 cm/s Mitral E to LV E' Septal Ratio 4.5 TR Peak Velocity 259.0 cm/s TR Peak Gradient 26.8 mmHg Right Atrial Pressure 10.0 mmHg Pulmonary Artery Systolic Pressu 36.8 mmHg Right Ventricular Systolic Press 36.8 mmHg FINDINGS LEFT VENTRICLE The left ventricular systolic function is low normal with an estimated ejection fraction in the rang e of 50- 55%. Normal left ventricular size. Mild concentric left ventricular hypertrophy. RIGHT VENTRICLE Normal right ventricular size and systolic function. There is a prominent moderator band observed in the right ventricle (benign finding). LEFT ATRIUM The left atrial size is normal. RIGHT ATRIUM The right atrial size is normal. ATRIAL SEPTUM Normal atrial septal thickness without atrial level shunting by limited color doppler interrogation. AORTA The aortic root and proximal ascending aorta are normal in size on limited imaging. MITRAL VALVE [id number] mitral valve regurgitation. Structurally normal mitral valve. AORTIC VALVE Trileaflet aortic valve. No aortic valve regurgitation. No aortic valve stenosis. TRICUSPID VALVE Structurally normal tricuspid valve. There is mild tricuspid valve regurgitation. The estimated pulmonary arterial pressure is 36.8 mmHg. PULMONARY VALVE No pulmonary valve regurgitation or stenosis. VESSELS The inferior vena cava is normal in size. PERICARDIUM No pericardial effusion. Filemon Mays MD, FACC (Electronically Signed) Final Date:25 June 2017 14:42
--- NOTE | 2017-06-25 15:21 | HHI.PR ---
Subjective Remarks Patient denies chest pain feeling well part one of nuclear stress test today Objective Vitals Vital Signs Date Time Temp Pulse Resp B/P (MAP) Pulse Ox O2 Delivery O2 Flow Rate FiO2 06/25/17 12:02 97.9 66 18 145/80 (101) 98 06/25/17 10:11 54 06/25/17 08:02 97.8 62 20 125/84 (98) 96 06/25/17 04:18 97.8 56 18 119/63 (81) 94 06/24/17 23:22 97.1 74 18 142/79 (100) 92 06/24/17 20:23 98.3 65 18 148/88 (108) 96 06/24/17 19:13 98.0 82 20 155/92 (113) 94 06/24/17 16:54 68 15 135/95 (108) 98 Nasal Cannula 2.00 06/24/17 16:52 60 15 123/84 (97) 98 Nasal Cannula 2.00 Result Diagram: 06/25/17 0515 06/25/17 0515 Other Results Laboratory Tests Test 06/24/17 11:15 06/24/17 21:00 06/24/17 22:22 06/24/17 23:07 White Blood Count 8.4 TH/MM3 Red Blood Count 4.89 MIL/MM3 Hemoglobin 15.2 GM/DL Hematocrit 43.1 % Mean Corpuscular Volume 88.1 FL Mean Corpuscular Hemoglobin 31.0 PG Mean Corpuscular Hemoglobin Concent 35.2 % Red Cell Distribution Width 12.1 % Platelet Count 204 TH/MM3 Mean Platelet Volume 8.0 FL Neutrophils (%) (Auto) 59.8 % Lymphocytes (%) (Auto) 27.7 % Monocytes (%) (Auto) 8.9 % Eosinophils (%) (Auto) 2.8 % Basophils (%) (Auto) 0.8 % Neutrophils # (Auto) 5.0 TH/MM3 Lymphocytes # (Auto) 2.3 TH/MM3 Monocytes # (Auto) 0.7 TH/MM3 Eosinophils # (Auto) 0.2 TH/MM3 Basophils # (Auto) 0.1 TH/MM3 CBC Comment DIFF FINAL Differential Comment Prothrombin Time 10.9 SEC Prothromb Time International Ratio 1.1 RATIO Activated Partial Thromboplast Time 27.5 SEC 32.8 SEC Blood Urea Nitrogen 15 MG/DL Creatinine 0.92 MG/DL Random Glucose 90 MG/DL Total Protein 8.2 GM/DL Albumin 4.3 GM/DL Calcium Level 8.9 MG/DL Magnesium Level 2.2 MG/DL 2.1 MG/DL Alkaline Phosphatase 34 U/L Aspartate Amino Transf (AST/SGOT) 27 U/L Alanine Aminotransferase (ALT/SGPT) 42 U/L Total Bilirubin 0.7 MG/DL Sodium Level 138 MEQ/L Potassium Level 3.7 MEQ/L Chloride Level 102 MEQ/L Carbon Dioxide Level 31.2 MEQ/L Anion Gap 5 MEQ/L Estimat Glomerular Filtration Rate 88 ML/MIN Troponin I LESS THAN 0.02 NG/ML LESS THAN 0.02 NG/ML Lipase 152 U/L Urine Opiates Screen NEG Urine Barbiturates Screen NEG Urine Amphetamines Screen NEG Urine Benzodiazepines Screen NEG Urine Cocaine Screen NEG Urine Cannabinoids Screen NEG Total Creatine Kinase 153 U/L Test 06/25/17 02:40 06/25/17 05:15 Total Creatine Kinase 138 U/L White Blood Count 8.7 TH/MM3 Red Blood Count 4.73 MIL/MM3 Hemoglobin 14.3 GM/DL Hematocrit 41.2 % Mean Corpuscular Volume 87.1 FL Mean Corpuscular Hemoglobin 30.1 PG Mean Corpuscular Hemoglobin Concent 34.6 % Red Cell Distribution Width 12.3 % Platelet Count 189 TH/MM3 Mean Platelet Volume 7.9 FL Neutrophils (%) (Auto) 55.0 % Lymphocytes (%) (Auto) 32.8 % Monocytes (%) (Auto) 8.0 % Eosinophils (%) (Auto) 3.4 % Basophils (%) (Auto) 0.8 % Neutrophils # (Auto) 4.8 TH/MM3 Lymphocytes # (Auto) 2.8 TH/MM3 Monocytes # (Auto) 0.7 TH/MM3 Eosinophils # (Auto) 0.3 TH/MM3 Basophils # (Auto) 0.1 TH/MM3 CBC Comment DIFF FINAL Differential Comment Activated Partial Thromboplast Time 39.2 SEC Blood Urea Nitrogen 14 MG/DL Creatinine 0.82 MG/DL Random Glucose 91 MG/DL Calcium Level 8.2 MG/DL Sodium Level 138 MEQ/L Potassium Level 3.6 MEQ/L Chloride Level 104 MEQ/L Carbon Dioxide Level 27.8 MEQ/L Anion Gap 6 MEQ/L Estimat Glomerular Filtration Rate 100 ML/MIN Triglycerides Level 126 MG/DL Cholesterol Level 170 MG/DL LDL Cholesterol 100 MG/DL HDL Cholesterol 44.5 MG/DL Cholesterol/HDL Ratio 3.82 RATIO Imaging Last Impressions Chest X-Ray 06/24/17 1111 Signed Impressions: Service Date/Time: Saturday, June 24, 2017 11:30 - CONCLUSION: No acute disease. Enzo Darling MD Objective Remarks GENERAL: This is a well-nourished, well-developed patient, in no apparent distress. CARDIOVASCULAR: Regular rate and rhythm RESPIRATORY: Clear to auscultation. Breath sounds equal bilaterally. GASTROINTESTINAL: Abdomen soft, non-tender, nondistended. No guarding. MUSCULOSKELETAL: Extremities without clubbing, cyanosis, or edema. No joint tenderness, effusion, or edema noted. No calf tenderness. Negative Homans sign bilaterally. NEUROLOGICAL: Awake and alert. No focal deficits. Motor and sensory grossly within normal limits. Five out of 5 muscle strength in all muscle groups. Normal speech. A/P Problem List: (1) ACS (acute coronary syndrome) ICD Codes: I24.9 - Acute ischemic heart disease, unspecified Status: Acute Plan: Chest pain rule out acute coronary syndrome Due to high suspicion for acute coronary syndrome patient was started on heparin drip and nitroglycerin drip and case was discussed with cardiology Dr. minor continue heparin and nitroglycerin drip Aspirin daily Lipid profile total cholesterol 170, LDL 100, HDL 44.5 2 D echocardiogram: EF 50-55% mild concentric ventricular hypertrophy, trace to mild mitral value regurgitation, NO aortic valve regurgitation, No aortic valve stenosis, mild tricuspid regurgitation, estimated pulmonary pressure 36.8 mmHg. There is a prominent moderator band observed in the right ventricle ( benign finding). Patient made nothing by mouth after midnight Consult placed to cardiology, appreciate input recommending servando scan which is pending troponin <0.02 x 2 serial EKG reviewed SR with 1 st degree AV block, incomplete LBBB- no acute ischemic changes Urine toxicology neg case discussed with cardiology- will DC nitroglycerin and heparin drip SL nitroglycerin if needed (2) Ramos's esophagus with esophagitis ICD Codes: K22.70 - Ramos's esophagus without dysplasia; K20.9 - Esophagitis , unspecified Plan: Caitlyn Farfan Jun 25, 2017 15:21
[2017-06-25 15:46] LABS: APTT (PATIENT) 34.6 SEC (24.3-30.1)
[2017-06-25] MEDS ORDERED: NITROGLYCERIN 0.4 MG SL 25 TABS/BTL SL PRN (16:00)
[2017-06-25] MEDS ORDERED: cloNIDine HCL 0.2 MG TAB PO PRN (16:00)
[2017-06-26] VITALS (8 sets, daily range): BP systolic 135–153; BP diastolic 70–98; PULSE 60–86; RESP 17–20; TEMP 97.8–98.8; O2SAT 93–96
--- NOTE | 2017-06-26 08:31 | PD.CARD.PN ---
Subjective Subjective Remarks No further chest pain or shortness of breath. Completed one half a stress test yesterday, for second half today. (Rg Gallo) Objective Medications Current Medications Medications (Trade) Dose Ordered Sig/Edi Route Start Time Stop Time Status Last Admin (Heparin Inj) 5,000 units UNSCH PRN IV PUSH 06/24/17 14:00 (Heparin Inj) 2,500 units UNSCH PRN IV PUSH 06/24/17 14:00 06/24/17 23:45 (NS Flush) 2 ml UNSCH PRN IV FLUSH 06/24/17 14:15 (NS Flush) 2 ml BID IV FLUSH 06/24/17 21:00 06/25/17 20:51 (Tylenol) 650 mg Q4H PRN PO 06/24/17 14:15 06/24/17 22:47 (Zofran Inj) 4 mg Q6H PRN IVP 06/24/17 14:15 (Restoril) 15 mg HS PRN PO 06/24/17 14:15 (Narcan Inj) 0.4 mg UNSCH PRN IV PUSH 06/24/17 14:15 (Milk Of Magnesia Liq) 30 ml Q12H PRN PO 06/24/17 14:15 (Aspirin) 325 mg DAILY PO 06/25/17 09:00 06/25/17 14:14 (Nitrostat Sl) 0.4 mg Q5M PRN SL 06/24/17 14:15 (Protonix) 40 mg DAILY PO 06/25/17 09:00 06/25/17 14:14 (Catapres) 0.2 mg Q6H PRN PO 06/25/17 16:00 Vital Signs / I&O Vital Signs Date Time Temp Pulse Resp B/P (MAP) Pulse Ox O2 Delivery O2 Flow Rate FiO2 06/26/17 04:00 60 06/26/17 04:00 Room Air 06/26/17 04:00 98.0 64 18 135/85 (102) 96 06/26/17 00:00 79 06/26/17 00:00 Room Air 06/26/17 00:00 98.7 79 18 144/70 (94) 95 06/25/17 20:00 98.5 94 19 154/95 (114) 94 06/25/17 20:00 Room Air 06/25/17 20:00 100 06/25/17 17:30 74 06/25/17 16:02 97.5 83 20 166/91 (116) 94 06/25/17 12:02 97.9 66 18 145/80 (101) 98 06/25/17 10:11 54 I/O 06/25/17 06/25/17 06/25/17 06/26/17 06/26/17 06/26/17 07:00 15:00 23:00 07:00 15:00 23:00 Intake Total 480 ml 260 ml 280 ml Output Total 650 ml Balance -170 ml 260 ml 280 ml Intake Oral 480 ml 260 ml 280 ml Output Urine Total 650 ml # Voids 6 3 # Bowel Movements 0 1 1 Physical Exam GENERAL: Well-developed well-nourished. In no acute distress. NECK: No carotid bruits. No JVD. CARDIOVASCULAR: Regular rate and rhythm. No murmur appreciated. RESPIRATORY: No accessory muscle use. Clear to auscultation. Breath sounds equal bilaterally. MUSCULOSKELETAL: No clubbing or cyanosis. No edema. NEUROLOGICAL: Awake and alert. Normal speech. Laboratory Laboratory Tests Test 06/25/17 14:55 Activated Partial Thromboplast Time 34.6 SEC Imaging Last Impressions Chest X-Ray 06/24/17 1111 Signed Impressions: Service Date/Time: Saturday, June 24, 2017 11:30 - CONCLUSION: No acute disease. Enzo Darling MD (Rg Gallo) Assessment and Plan Assessment and Plan 47-year-old male with past history of allergies who presented for chest pain Chest pain: With some typical features, however EKG and troponins have been negative. Echo with normal systolic function, EF 50-55%. Lexiscan in progress. (Rg Gallo) Assessment and Plan await servando if normal -> home if abnormal -> [facility] tomorrow (Filemon Mays MD) Rg Gallo Jun 26, 2017 08:31 Filemon Mays MD Jun 26, 2017 09:31
[2017-06-26] MEDS: ASPIRIN 325 MG TAB PO SCH (09:01)
[2017-06-26] MEDS: SODIUM CHLORIDE 0.9% FLUSH 10 ML FLUSH IV FLUSH SCH ×2 (09:01→22:07)
[2017-06-26] MEDS: PANTOPRAZOLE SOD 40 MG DELAYED RELEASE TAB PO SCH (09:01)
--- NOTE | 2017-06-26 12:10 | RADRPT ---
EXAM DATE/TIME: 06/25/2017 13:08 [place] COMPARISON: No previous studies available for comparison. INDICATIONS : Chest pain. Angina. DOSE: 30 mCi Tc99m Myoview at stress. 30 mCi Tc99m Myoview at rest. 0.4 mg Lexiscan STRESS SYMPTOMS: Shortness of breath, chest pressure, stomach pressure. EJECTION FRACTION: 58% MEDICAL HISTORY : None SURGICAL HISTORY : None. ENCOUNTER: Initial ACUITY: 1 day PAIN SCALE: 4/10 LOCATION: Left chest TECHNIQUE: The patient underwent pharmacologic stress with infusion of prescribed dose. Continuous ECG tracing was monitored during stress. Gated SPECT imaging was performed after stress and conventional SPECT i maging was performed at rest. The examination was performed on a SPECT/CT scanner, both attenuation and non-corrected datasets were reviewed. FINDINGS: DISTRIBUTION: The maximum perfused segment at stress is in the inferior wall. PERFUSION STUDY: Small areas of moderate reversible perfusion deficit seen of the anterior wall and also the apex GATED STUDY: There is intact wall motion and thickening without hypokinetic or dyskinetic segments. CONCLUSION: 1. Focal stress-induced ischemia in the anterior wall and at the apex. 2. Normal wall motion. RISK CATEGORY: Intermediate Julio Rao MD on June 26, 2017 at 12:05 Board Certified Radiologist. This report was verified electronically.
--- NOTE | 2017-06-26 14:43 | HHI.PR ---
Subjective Remarks No chest pain today. No SOB, no n/v, no diaphoresis. Objective Vitals Vital Signs Date Time Temp Pulse Resp B/P (MAP) Pulse Ox O2 Delivery O2 Flow Rate FiO2 06/26/17 12:02 98.8 78 18 151/93 (112) 95 06/26/17 09:39 79 06/26/17 09:38 95 Room Air 06/26/17 08:02 98.4 84 17 153/93 (113) 95 06/26/17 04:00 60 06/26/17 04:00 Room Air 06/26/17 04:00 98.0 64 18 135/85 (102) 96 06/26/17 00:00 79 06/26/17 00:00 Room Air 06/26/17 00:00 98.7 79 18 144/70 (94) 95 06/25/17 20:00 98.5 94 19 154/95 (114) 94 06/25/17 20:00 Room Air 06/25/17 20:00 100 06/25/17 17:30 74 06/25/17 16:02 97.5 83 20 166/91 (116) 94 Result Diagram: 06/25/17 0515 06/25/17 0515 Imaging Last Impressions Myocardial Perfusion Scan Nuc Med 06/25/17 0000 Signed Impressions: Service Date/Time: Sunday, June 25, 2017 13:08 - CONCLUSION: 1. Focal stress-induced ischemia in the anterior wall and at the apex. 2. Normal wall motion. RISK CATEGORY: Intermediate Julio Rao MD Chest X-Ray 06/24/17 1111 Signed Impressions: Service Date/Time: Saturday, June 24, 2017 11:30 - CONCLUSION: No acute disease. Enzo Darling MD Objective Remarks GENERAL: This is a well-nourished, well-developed patient, in no apparent distress. CARDIOVASCULAR: Regular rate and rhythm RESPIRATORY: Clear to auscultation. Breath sounds equal bilaterally. GASTROINTESTINAL: Abdomen soft, non-tender, nondistended. No guarding. MUSCULOSKELETAL: Extremities without clubbing, cyanosis, or edema. No joint tenderness, effusion, or edema noted. No calf tenderness. Negative Homans sign bilaterally. NEUROLOGICAL: Awake and alert. No focal deficits. Motor and sensory grossly within normal limits. Five out of 5 muscle strength in all muscle groups. Normal speech. A/P Problem List: (1) ACS (acute coronary syndrome) ICD Codes: I24.9 - Acute ischemic heart disease, unspecified Status: Acute Plan: - comanagement with Cardiology Chest pain rule out acute coronary syndrome Due to high suspicion for acute coronary syndrome patient was started on heparin drip and nitroglycerin drip and case was discussed with cardiology Dr. minor continue heparin and nitroglycerin drip Aspirin daily Lipid profile total cholesterol 170, LDL 100, HDL 44.5 2 D echocardiogram: EF 50-55% mild concentric ventricular hypertrophy, trace to mild mitral value regurgitation, NO aortic valve regurgitation, No aortic valve stenosis, mild tricuspid regurgitation, estimated pulmonary pressure 36.8 mmHg. There is a prominent moderator band observed in the right ventricle ( benign finding). - abnormal lexiscan (06/26) --> focal stress induced ischemia in the anterior wall and at the apex - serial cardiac enzymes negative - serial EKGs did NOT show acute ischemic changes - Urine tox negative - start statin - prn SL NTG - start lipitor - supportive care - SCD prophylaxis (2) Ramos's esophagus with esophagitis ICD Codes: K22.70 - Ramos's esophagus without dysplasia; K20.9 - Esophagitis , unspecified Plan: Protonix Clarence Renner DO Jun 26, 2017 14:43
[2017-06-26] MEDS ORDERED: cloNIDine HCL 0.2 MG TAB PO PRN (16:00)
[2017-06-26] MEDS ORDERED: ATORVASTATIN 40 MG TAB PO SCH (21:00)
[2017-06-27] VITALS: BP 131/78; PULSE 60; PULSE 74; RESP 19; TEMP 98; O2SAT 96
[2017-06-27 04:00] VITALS: BP 128/66; PULSE 57; PULSE 69; RESP 19; TEMP 98.3; O2SAT 95
[2017-06-27 08:00] VITALS: BP 132/86; PULSE 64; PULSE 97; RESP 19; TEMP 97.9; O2SAT 96
--- NOTE | 2017-06-27 08:11 | PD.CARD.PN ---
Subjective Subjective Remarks admits to mild headache. no chest pain or sob (Serena Carbajal) Objective Medications Current Medications Medications (Trade) Dose Ordered Sig/Edi Route Start Time Stop Time Status Last Admin (Heparin Inj) 5,000 units UNSCH PRN IV PUSH 06/24/17 14:00 (Heparin Inj) 2,500 units UNSCH PRN IV PUSH 06/24/17 14:00 06/24/17 23:45 (NS Flush) 2 ml UNSCH PRN IV FLUSH 06/24/17 14:15 (NS Flush) 2 ml BID IV FLUSH 06/24/17 21:00 06/26/17 22:07 (Tylenol) 650 mg Q4H PRN PO 06/24/17 14:15 06/24/17 22:47 (Zofran Inj) 4 mg Q6H PRN IVP 06/24/17 14:15 (Restoril) 15 mg HS PRN PO 06/24/17 14:15 (Narcan Inj) 0.4 mg UNSCH PRN IV PUSH 06/24/17 14:15 (Milk Of Magnesia Liq) 30 ml Q12H PRN PO 06/24/17 14:15 (Aspirin) 325 mg DAILY PO 06/25/17 09:00 06/26/17 09:01 (Nitrostat Sl) 0.4 mg Q5M PRN SL 06/24/17 14:15 (Protonix) 40 mg DAILY PO 06/25/17 09:00 06/26/17 09:01 (Lipitor) 40 mg HS PO 06/26/17 21:00 06/26/17 22:06 (Catapres) 0.1 mg Q6H PRN PO 06/26/17 16:00 Vital Signs / I&O Vital Signs Date Time Temp Pulse Resp B/P (MAP) Pulse Ox O2 Delivery O2 Flow Rate FiO2 06/27/17 04:00 Room Air 06/27/17 04:00 98.3 69 19 128/66 (86) 95 06/27/17 04:00 57 06/27/17 00:00 Room Air 06/27/17 00:00 98.0 60 19 131/78 (95) 96 06/27/17 00:00 74 06/26/17 20:00 Room Air 06/26/17 20:00 74 06/26/17 20:00 97.8 86 20 149/89 (109) 94 06/26/17 16:03 98.4 79 18 148/98 (115) 93 06/26/17 16:00 77 06/26/17 12:02 98.8 78 18 151/93 (112) 95 06/26/17 09:39 79 06/26/17 09:38 95 Room Air I/O 06/26/17 06/26/17 06/26/17 06/27/17 06/27/17 06/27/17 07:00 15:00 23:00 07:00 15:00 23:00 Intake Total 280 ml 360 ml 0 ml Balance 280 ml 360 ml 0 ml Intake Oral 280 ml 360 ml 0 ml # Voids 3 3 4 # Bowel Movements 1 0 1 Physical Exam GENERAL: SKIN: Warm and dry. HEAD: Atraumatic. Normocephalic. EYES: Pupils equal and round. ENT: No nasal bleeding or discharge. NECK: Trachea midline. No JVD. CARDIOVASCULAR: Regular rate and rhythm. No murmurs RESPIRATORY: No accessory muscle use. Clear to auscultation. Breath sounds equal bilaterally. GASTROINTESTINAL: Abdomen soft, non-tender, nondistended.. MUSCULOSKELETAL: Extremities without clubbing, cyanosis, or edema. No obvious deformities. NEUROLOGICAL: Awake and alert. No obvious cranial nerve deficits. Normal speech. PSYCHIATRIC: Appropriate mood and affect; insight and judgment normal. (Serena Carbajal) Assessment and Plan Problem List: (1) ACS (acute coronary syndrome) ICD Codes: I24.9 - Acute ischemic heart disease, unspecified Status: Acute Assessment and Plan chest pain- abnormal stress test demonstrating stress-induced anterior wall ischemia. EF 55% on echo; obtain cbc and bmp. plan for C for this afternoon. (Serena Carbajal) Assessment and Plan NPO LHC at noon today (Filemon Mays MD) Serena Carbajal Jun 27, 2017 08:11 Filemon Mays MD Jun 27, 2017 08:21
[2017-06-27] MEDS: SODIUM CHLORIDE 0.9% FLUSH 10 ML FLUSH IV FLUSH SCH (09:00)
[2017-06-27] MEDS: PANTOPRAZOLE SOD 40 MG DELAYED RELEASE TAB PO SCH (09:03)
[2017-06-27] MEDS: ASPIRIN 325 MG TAB PO SCH (09:03)
--- NOTE | 2017-06-27 09:10 | HHI.PR ---
Subjective Remarks no cp or sob Objective Vitals heart reg lung cta abd s/nt ext no edema Vital Signs Date Time Temp Pulse Resp B/P (MAP) Pulse Ox O2 Delivery O2 Flow Rate FiO2 06/27/17 04:00 Room Air 06/27/17 04:00 98.3 69 19 128/66 (86) 95 06/27/17 04:00 57 06/27/17 00:00 Room Air 06/27/17 00:00 98.0 60 19 131/78 (95) 96 06/27/17 00:00 74 06/26/17 20:00 Room Air 06/26/17 20:00 74 06/26/17 20:00 97.8 86 20 149/89 (109) 94 06/26/17 16:03 98.4 79 18 148/98 (115) 93 06/26/17 16:00 77 06/26/17 12:02 98.8 78 18 151/93 (112) 95 06/26/17 09:39 79 06/26/17 09:38 95 Room Air Result Diagram: 06/25/17 0515 06/25/17 0515 Imaging Last Impressions Myocardial Perfusion Scan Nuc Med 06/25/17 0000 Signed Impressions: Service Date/Time: Sunday, June 25, 2017 13:08 - CONCLUSION: 1. Focal stress-induced ischemia in the anterior wall and at the apex. 2. Normal wall motion. RISK CATEGORY: Intermediate Julio Rao MD Chest X-Ray 06/24/17 1111 Signed Impressions: Service Date/Time: Saturday, June 24, 2017 11:30 - CONCLUSION: No acute disease. Enzo Darling MD A/P Problem List: (1) ACS (acute coronary syndrome) ICD Codes: I24.9 - Acute ischemic heart disease, unspecified Status: Acute Plan: Pt presented with left arm pains and diaphoresis. his symptoms improved with ntg and his lexiscan shows focal stress induced ischemia in the ant wall and apex Lipid profile total cholesterol 170, LDL 100, HDL 44.5 2 D echocardiogram: EF 50-55% mild concentric ventricular hypertrophy, trace to mild mitral value regurgitation, NO aortic valve regurgitation, No aortic valve stenosis, mild tricuspid regurgitation, estimated pulmonary pressure 36.8 mmHg. There is a prominent moderator band observed in the right ventricle ( benign finding). - serial cardiac enzymes negative - serial EKGs did NOT show acute ischemic changes - Urine tox negative - started statin and asa - prn SL NTG - start lipitor -going for [facility] today.....d/c home if negative. (2) Ramos's esophagus with esophagitis ICD Codes: K22.70 - Ramos's esophagus without dysplasia; K20.9 - Esophagitis , unspecified Status: Chronic Plan: Protonix Maury Hurst MD Jun 27, 2017 09:09
[2017-06-27 09:18] LABS: HEMATOCRIT 43.1 % (39.0-51.0); MEAN CELL VOLUME 86.7 FL (80.0-100.0); MEAN CORPUSCULAR HEMOGLOBIN 30.4 PG (27.0-34.0); PLATELET COUNT 185 TH/MM3 (150-450); RED BLOOD COUNT 4.98 MIL/MM3 (4.50-5.90); RED CELL DISTRIBUTION WIDTH 12.6 % (11.6-17.2); REVIEW FLAG FINAL; WHITE BLOOD COUNT 9.8 TH/MM3 (4.0-11.0)
[2017-06-27 12:00] VITALS: BP 138/91; PULSE 73; PULSE 74; RESP 19; TEMP 98.8; O2SAT 94
[2017-06-27 12:24] LABS: AUTOMATED NEUTROPHIL # 5.9 TH/MM3 (1.8-7.7); BASOPHIL % 0.3 % (0.0-2.0); EOSINOPHIL # 0.2 TH/MM3 (0-0.4); EOSINOPHIL % 2.2 % (0.0-4.0); HEMATOCRIT 43.3 % (39.0-51.0); HEMO FLAGS DIFF FINAL; LYMPH % 15.9 % (9.0-44.0); LYMPHOCYTE # 1.3 TH/MM3 (1.0-4.8); MEAN CELL VOLUME 87.7 FL (80.0-100.0); MEAN CORPUSCULAR HEMOGLOBIN 30.5 PG (27.0-34.0); MEAN CORPUSCULAR HGB CONC 34.8 % (32.0-36.0); MONO % 9.1 % (0.0-8.0); NEUT % 72.5 % (16.0-70.0); PLATELET COUNT 186 TH/MM3 (150-450); RED BLOOD COUNT 4.93 MIL/MM3 (4.50-5.90); RED CELL DISTRIBUTION WIDTH 12.5 % (11.6-17.2); WHITE BLOOD COUNT 8.1 TH/MM3 (4.0-11.0)
[2017-06-27 12:42] LABS: BICARBONATE 29.5 MEQ/L (21.0-32.0); POTASSIUM 3.8 MEQ/L (3.5-5.1)
[2017-06-27] MEDS ORDERED: HEPARIN-NS/PF INJ 1,000 ML ONE (13:21)
[2017-06-27] MEDS ORDERED: MIDAZOLAM HCL 2 MG/2 ML VIAL ONE (13:23)
--- NOTE | 2017-06-27 14:06 | CATHPROC ---
[employer] HIS Report Study Information Study Number Admission Scheduled Start Study Start [id number] Jun 24 2017 2:10PM 06/27/2017 Jun 27 2017 1:23PM [place] Service Cardiac Catheterization Admit Source Facility Department Emergency department [facility] - Adult Care Manager Physician and Clinical Staff Initial Filemon Damon Animal Bounty Hunter Wade Smith,KAUR Recorder Terrance Carney,RT(R) Scrub Tamara, Park,NGUYỄN TECH2 Procedures Performed Procedure Location (Site) Vessel Name Coronary Angiograms LCA Left Coronary Coronary Angiograms RCA Right Coronary L Heart Cath Wire insertion Radial (right) Radial Art. Equipment Time Hydraulic Press Operator Description Size Mfg Part Number Used/Scraped TRANSDUCER, TRUWAVE [id number] 13:34 BLOOD GRANDE * Used W/STOCKCOCK *[id number] *[id number] 13:34 [employer] INDUSTRIES PACK, CCL CUSTOM * Used *[id number] 13:34 eMeter SUPPORT, ARTERIAL ADULT 79701 *[id number] Used [id number] 13:34 [employer] PACER PEN, SKIN DUAL W/ RULER * Used *[id number] 13:46 MEDTRONIC JL 3.5 DXTERITY CATHETER FR 5 [id number] Used BAND, RADIAL COMPRESSION TR [id number] 13:55 [employer] MEDICAL 29CM Used LARGE 29 *[id number] SHEATH, FR6 RADIAL PRELUDE 13:34 [employer] MEDICAL FR 6 [id number] Used EASE 11CM [id number] 13:34 [employer] MEDICAL WIRE, EXCHANGE 260CM 3MMJ 260CM Used *[id number] 13:34 [employer] MEDICAL WIRE, EXCHANGE 260CM 3MMJ 260CM Used *[id number] 13:34 NYCOMED OMNIPAQUE, 350 MG, 150ML 150ML [id number] Used [id number] 13:34 [employer] BLANKET,WARM AIR CCL * Used *[id number] History: Current Medications Medication Dosage/Unit Route Frequency Last Date/Time Taken ASA History: Allergies Allergy Reaction erythromycin base History: Risk Factors Family History of Hypertension Dyslipidemia Previous MS Previous Heart Failure Premature CAD No No Yes No No Prior Valve Prior PCI Prior CABG Surgery No No No Cerebrovascular Peripheral Artery Chronic Lung On Dialysis Diabetes Disease Disease Disease No No No No No History: Stress Tests Stress or Imaging Studies Performed Yes Standard Exercise Stress Test No Stress Echo No Stress Test SPECT Yes Stress Test CMR No Cardiac CTA Coronary Calcium Score No No History: Other Current Smoker No Labs Hgb (g/dl) Hct (%) WBC (l/cumm) Platelets (thousands) 11.60-17.00 35.00-51.00 4.00-11.00 150.00-450.00 15.1 43.1 9.8 185 Glucose (mg/dl) BUN (mg/dl) Creatinine (mg/dl) BUN:Creatinine (1:x) 74.00-106.00 7.00-18.00 0.50-1.30 10.00-20.00 98 14 0.8 17.5 Na (meq/l) K (meq/l) 136.00-145.00 3.50-5.10 138 3.6 INR (PTT:PT) 0.90-1.10 1.1 Troponin I (ng/ml) CPK (u/l) CPK-MB (ng/ML) 0.02-0.05 26.00-308.00 0.50-3.60 0.02 138 Not Drawn Medication Medication Total Dose (Bolus/Oral) Medication Total Dosage/Unit 1% XYLOCAINE 1 mL FENTANYL 50 mcg NTG (IC) 200 mcg VERSED 2 mg Medications (Bolus/Oral) Medication Time Given Dosage/Unit Administered By Reason VERSED 06/27/2017 1:38:41 PM 2 mg Wade Smith 2 mg VERSED given in lab by Wade Smith, KAUR in Right Antecubital via Peripheral IV. FENTANYL 06/27/2017 1:38:46 PM 50 mcg Wade Smith 50 mcg FENTANYL given in lab by Wade Smith RN in Right Antecubital via Peripheral IV. 1% XYLOCAINE 06/27/2017 1:41:43 PM 1 mL Filemon Mays 1 mL 1% XYLOCAINE given in lab by Filemon Mays in Right Radial via Subcutaneous. NTG (IC) 06/27/2017 1:42:55 PM 200 mcg Filemon Mays 200 mcg NTG (IC) given in lab by Filemon Mays in Right Radial via Intra-arterial. Medication (Drip) Medication Time Given Dosage/Unit Concentration/Unit Diluent (ml) Soluti on IV Solutions 06/27/2017 1:25:44 PM 0 mL (IV) 500 NaCl .9 IV Solutions given in lab by Wade Smith, RN in Right Antecubital via Peripheral IV. Pump/Drip Paolo w = 200 ml/hr using NaCl .9. Initial Case Assessment Cardiovascular HR Rhythm NIBP Chest Pain 73 Sinus 159/106 0 Edema Present Skin color Skin None Normal Warm Dry Circulatory - Right Pulses Dorsalis Pedis Femoral Radial 2 2 2 Scale (0,1,2,3,4,d) Scale (0,1,2,3,4,d) Neurological State Oriented to time-place- Alert Moves all extremities person Respiration - General Respiration Rate SpO2 (%) O2 (lpm) (B/min) 18 94 0 Chronological Log Time Study Chronological Log 13:12:52 Patient arrived via Bed. 13:13:06 Patient Name, D.O.B, / Armband Verified By R.N. 13:13:07 Consent signed by the physician and the patient and verified by the Adult Care Manager staff. 13:13:08 Pre-op and post- op instructions given; patient acknowledges understanding of instructions. 13:23:23 Verbal Stimulation=2 Physical Stimulation=2 Airway=2 Respiration=2 TOTAL=8. (0=absent, 1=li mited, 2=present) 13:25:18 Presedation assessment performed by Adult Care Manager RN. 13:25:20 Allens test performed on the right radial and ulnar artery. 13:25:24 Patient has been NPO for More than 6Hrs. 13:25:25 Skin Breakdown- none per patient. 13:25:39 Patient Warmer Placed on the Table. 13:25:41 Shelbie Prominences Protected 13:25:42 A # 18 IV was noted in the Antecubital (right). Grade = 0 IV Solutions given in lab by Wade Smith, RN in Right Antecubital via Peripheral IV. Pump/Dr ip Flow = 200 ml/hr using 13:25:44 NaCl .9. 13:25:45 History and physical on the chart or being dictated. Assessment: Initial Case, HR=73 BPM, Rhythm=Sinus, KZSJ=763/106 mmhg, Chest Pain=0, Edema=None, Color=Normal, Skin = Warm, Dry 13:25:46 Right Pulses: Aiden Ped=2, Femoral=2, Radial=2 Neurological: State=Alert, Ox3, RUBIO Respiration: Resp=18 B/min, SpO2=94 %, O2=0 lpm 13:25:50 Right Radial and groin(s) prepped with 2% chlorhexidine, and draped after a 3 min. waiting time. Vitals capture started with the following parameters, Patient=Adult, Interval=5 min, Initial Pr ytrklr=258 mmHg, 13:27:30 Deflation Rate=5 mmHg, Cuff placed on Left Arm 13:27:57 Reference ECG taken 13:28:07 HR=74 bpm, XLBE=103/106 mmhg, SpO2=96.0 %, Resp=21 B/min, Pain=0, Christine=10, Calderon=2 13:33:09 HR=72 bpm, ZSPB=285/100 mmhg, SpO2=92.0 %, Resp=17 B/min, Pain=0, Christine=10, Calderon=2 13:35:54 MD paged 13:36:55 Pressure channel 1 zeroed. 13:38:12 HR=70 bpm, ZQLJ=326/101 mmhg, SpO2=96.0 %, Resp=16 B/min, Pain=0, Christine=10, Calderon=2 13:38:41 2 mg VERSED given in lab by Wade Smith RN in Right Antecubital via Peripheral IV. 13:38:46 50 mcg FENTANYL given in lab by Wade Smith, KAUR in Right Antecubital via Peripheral IV. Time Out. Correct patient, correct procedure, correct physician, power injector not loaded with contrast with surgical 13:41:31 team present. Time Out Concurred by MD and individual staff in procedure. 13:41:40 Case Start 13:41:43 1 mL 1% XYLOCAINE given in lab by Filemon Mays in Right Radial via Subcutaneous. 13:42:32 Access site was right Radial Artery. A SHEATH, FR6 RADIAL PRELUDE EASE 11CM FR 6 was advanced into the Radial (right) using the Perc utaneous 13:42:38 technique. 13:42:55 200 mcg NTG (IC) given in lab by Filemon Mays in Right Radial via Intra-arterial. 13:43:11 HR=65 bpm, SGAG=918/90 mmhg, SpO2=92.0 %, Resp=13 B/min, Pain=0, Christine=10, Calderon=2 13:44:22 In the Radial (right) the SHEATH, FR6 RADIAL PRELUDE EASE 11CM FR [address] by Filemon Mays. A JR 5.0 INFINITI CATHETER FR 5 was advanced over a wire. OMNIPAQUE, 350 MG, 150ML 150ML was us ed for 13:45:27 injections. Recorded Pressure: LV, HR=66, Condition=Condition 1 13:45:47 (Left Ventricle) LV 127/1/7 Recorded Pressure: LV, Ao, HR=67, Condition=Condition 1 13:47:18 (Left Ventricle) LV 122/1/9, (Aorta) Ao 119/81/100 Recorded Pressure: Ao, HR=70, Condition=Condition 1 13:48:01 (Aorta) Ao 112/79/95 13:48:11 The RCA was injected and visualized at various angles. OMNIPAQUE, 350 MG, 150ML 150ML used . 13:48:12 HR=68 bpm, IWOV=995/88 mmhg, SpO2=93.0 %, Resp=16 B/min, Pain=0, Christine=10, Calderon=2 After removing the current catheter a JL 3.5 DXTERITY CATHETER FR 5 was advanced over a WIRE, E XCHANGE 260CM 13:48:51 3MMJ 260CM. 13:50:44 The LCA was injected and visualized at various angles. OMNIPAQUE, 350 MG, 150ML 150ML used . 13:53:09 HR=73 bpm, MRLM=755/87 mmhg, SpO2=94.0 %, Resp=13 B/min, Pain=0, Christine=10, Calderon=2 13:54:01 A WIRE, EXCHANGE 260CM 3MMJ 260CM was inserted via Radial (right). 13:54:12 Catheter was removed 13:54:13 Wire removed 13:54:21 Case End 13:54:30 Catheter(s) removed without difficulty 13:54:41 No case complications noted. 13:54:49 Bedside Report will be given. 13:55:07 A Left Heart Cath was performed. Radial Compression Device Used. 13 mLs of air placed in BAND, RADIAL COMPRESSION TR LARGE 29 29 CM. Affected 13:55:14 hand 95 % O2 saturation. 13:58:12 HR=70 bpm, MVNL=086/89 mmhg, SpO2=94.0 %, Resp=14 B/min, Pain=0, Christine=10, Calderon=2 14:02:43 Vitals capture stopped. 14:04:37 Patient moved to stretcher End Study - Contrast Media Used In Study Contrast Total Opened (mL) Total Used (mL) Total Wasted (mL) Omnipaque 50 50 0 End Study - Maximum Contrast Load Max Contrast Load (mL) 792.6 End Study - Radiation Exposure Fluoro Time (minutes) 2.2 End Study - Sheaths Sheaths Pulled By Sheath Hold Time (min) Park Mcdonald End Study - Patient Disposition Complications Transferred To Interventional Outcome No Adult Care Manager Holding No attempt made
[2017-06-27] MEDS ORDERED: MISC INFORMATION XX ONE (14:15)
[2017-06-27] MEDS ORDERED: ATOR40TA16 PO (14:38)
[2017-06-27] MEDS ORDERED: ASA325 PO (14:38)
[2017-06-27] MEDS ORDERED: PANT40TA3 PO (14:42)
--- NOTE | 2017-06-27 14:43 | HHI.DCPOC ---
Discharge Care Plan Diagnosis: (1) Chest pain Goals to Promote Your Health * To prevent worsening of your condition and complications * To maintain your health at the optimal level Directions to Meet Your Goals Take your medications as prescribed Follow your dietary instruction Follow activity as directed Keep your appointments as scheduled Take your immunizations and boosters as scheduled If your symptoms worsen call your PCP, if no PCP go to Urgent Care Center or Emergency Room Smoking is Dangerous to Your Health. Avoid second hand smoke Call the 24-hour hour crisis hotline for domestic abuse at Caitlyn Melton Jun 27, 2017 14:43
--- NOTE | 2017-06-27 14:47 | HHI.DS ---
Discharge Summary Admission Date Jun 24, 2017 at 14:10 Discharge Date: Jun 27, 2017 Admitting Diagnosis ACS (1) ACS (acute coronary syndrome) ICD Codes: I24.9 - Acute ischemic heart disease, unspecified Status: Acute (2) Ramos's esophagus with esophagitis ICD Codes: K22.70 - Ramos's esophagus without dysplasia; K20.9 - Esophagitis , unspecified Status: Chronic Consultants Dr. Colin Procedures Left cardiac catheterization with Dr. Colin 06/27/17 Brief History This 47-year-old male patient with past medical history which includes Ramos' s esophagitis. 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 Patient then had to sit down due to the pain. Patient also had diaphoresis, shortness of breath and oozy feeling. Patient reports the chest pain lasted for about 1.5 hours. Chest pain was relieved by nitroglycerin given in the ER. Patient endorses strong family history of heart disease. Patient's father had his first [place] at age 42. Patient himself has never been diagnosed with coronary artery disease. Patient denies fevers chills vomiting diarrhea constipation shortness of breath or cough CBC/BMP: 06/27/17 1145 06/27/17 1145 Significant Findings Laboratory Tests Test 06/24/17 21:00 06/24/17 22:22 06/24/17 23:07 06/25/17 02:40 Troponin I LESS THAN 0.02 NG/ML LESS THAN 0.02 NG/ML Activated Partial Thromboplast Time 32.8 SEC (24.3-30.1) Test 06/25/17 05:15 06/25/17 14:55 06/27/17 07:45 06/27/17 11:45 Activated Partial Thromboplast Time 39.2 SEC (24.3-30.1) 34.6 SEC (24.3-30.1) Calcium Level 8.2 MG/DL (8.5-10.1) LDL Cholesterol 100 MG/DL (0-99) Neutrophils (%) (Auto) 72.5 % (16.0-70.0) Monocytes (%) (Auto) 9.1 % (0.0-8.0) Imaging Last Impressions Myocardial Perfusion Scan Nuc Med 06/25/17 0000 Signed Impressions: Service Date/Time: Sunday, June 25, 2017 13:08 - CONCLUSION: 1. Focal stress-induced ischemia in the anterior wall and at the apex. 2. Normal wall motion. RISK CATEGORY: Intermediate Julio Rao MD Chest X-Ray 06/24/17 1111 Signed Impressions: Service Date/Time: Saturday, June 24, 2017 11:30 - CONCLUSION: No acute disease. Enzo Darling MD PE at Discharge GENERAL: This is a well-nourished, well-developed patient, in no apparent distress. CARDIOVASCULAR: Regular rate and rhythm RESPIRATORY: Clear to auscultation. Breath sounds equal bilaterally. GASTROINTESTINAL: Abdomen soft, non-tender, nondistended. Normal active bowel sounds MUSCULOSKELETAL: Extremities without clubbing, cyanosis, or edema. NEURO: Alert & Oriented x4 to person, place, time, situation. Moves all ext x4 Hospital Course (1) ACS (acute coronary syndrome) ICD Codes: I24.9 - Acute ischemic heart disease, unspecified Status: Acute Plan: Pt presented with left arm pains and diaphoresis. his symptoms improved with ntg and his lexiscan shows focal stress induced ischemia in the ant wall and apex Lipid profile total cholesterol 170, LDL 100, HDL 44.5 2 D echocardiogram: EF 50-55% mild concentric ventricular hypertrophy, trace to mild mitral value regurgitation, NO aortic valve regurgitation, No aortic valve stenosis, mild tricuspid regurgitation, estimated pulmonary pressure 36.8 mmHg. There is a prominent moderator band observed in the right ventricle ( benign finding). - serial cardiac enzymes negative - serial EKGs did NOT show acute ischemic changes - Urine tox negative - started statin and asa - prn SL NTG - start lipitor - Left cardiac cath 06/27/[address] colin showed 30 % stenosis to the LAD - cleared for DC per cardiology recommending aspirin daily and atorvastatin 40 mg PO QHS - patient to F/U with cardiology in 1 week - patient to F/U with PCP in 1 week as well (2) Ramos's esophagus with esophagitis ICD Codes: K22.70 - Ramos's esophagus without dysplasia; K20.9 - Esophagitis , unspecified Status: Chronic Plan: Protonix Pt Condition on Discharge: Stable Discharge Disposition: Discharge Home Discharge Instructions DIET: Follow Instructions for: Heart Healthy Diet Activities you can perform: See Additionl Instruction Other Activity Instructions: per cardiology Follow up Referrals: Cardiology - [address] Colin PCP Follow-up - [address] Jhoan Bullard New Medications: Aspirin (Px Aspirin) 325 Mg Tab 81 MG PO DAILY for Blood Clot Prevention, #30 TAB 0 Refills Atorvastatin (Atorvastatin) 40 Mg Tab 40 MG PO HS for Cholesterol Management, #30 TAB 0 Refills Pantoprazole (Pantoprazole) 40 Mg Tab 40 MG PO DAILY for stomach acid, #30 TAB 0 Refills Caitlyn Melton Jun 27, 2017 14:47
--- NOTE | 2017-06-27 15:05 | MA ---
cc: HERMAN ANN DATE: 06/27/2017 INDICATION Unstable angina. PROCEDURE PERFORMED 1. Fluoroscopy with interpretation. 2. Left heart catheterization. 3. Coronary angiography. METHOD Risks, benefits and alternatives were discussed with the patient. The patient understood and consented to the procedure. The patient was brought into the catheterization lab and placed on the catheterization table. The right wrist was prepped and draped in sterile fashion. Right wrist was anesthetized with 2% lidocaine. Right radial artery was cannulated and a 6-Panamanian 7 cm sheath was placed without difficulty. Intraventricular hemodynamics measured 120/0 mmHg. Left ventricular end-diastolic pressure 5 mmHg. No aortic stenosis by trans-aortic valvular pullback gradient. CORONARY ANGIOGRAPHY 1. Left main coronary is angiographically normal. 2. Left anterior descending artery had minor luminal irregularities. In the proximal segment there is a 30-40% stenosis just after the bifurcation of a large first diagonal branch which has minor luminal irregularities. The remainder of the left anterior descending coronary has minor luminal irregularities. 3. Left circumflex is large caliber size and angiographically normal. 4. Right coronary is dominant vessel giving rise to a posterior descending branch. Right coronary is angiographically normal. CONCLUSION 1. Mild to moderate nonobstructive mid left anterior descending coronary artery stenosis. 2. Normal left-sided filling pressures. PLAN The patient will be monitored closely for any postprocedure complications. Hopefully symptomatically he will do well. His stress test was a false positive and we will recommend aspirin in addition to statin therapy. He can follow up with his primary care doctor. MD RACHEL Rivera/JUAN DANIEL /2:29 PM /2:55 PM
[2017-06-27] MEDS ORDERED: IOHEXOL 350 MG/ML 50 ML BTL (for Cath Lab) OTHER ONE (16:24)
[2017-06-28] MEDS ORDERED: ASPIRIN 81 MG CHEW TAB PO SCH (09:00)
== END 2017-06-27 18:40 | disposition home or self-care (01) | DRG 287 ==
LOC: NEPE 11:02 → OBSVTOIN 14:10 → NEDA 14:10 → N04A 18:31
PROVIDERS: ADMIT Hospitalist; ATTEND Hospitalist
PROC: B2111ZZ Fluoroscopy of Multiple Coronary Arteries using Low Osmolar Contrast (ICD-10-PCS; 2017-06-27)
PROC: 4A023N7 Measurement of Cardiac Sampling and Pressure, Left Heart, Percutaneous Approach (ICD-10-PCS; principal; 2017-06-27 12:15)
DX: I24.9 Acute ischemic heart disease, unspecified (principal); K20.9 Esophagitis, unspecified; K22.70 Barrett's esophagus without dysplasia; F40.00 Agoraphobia, unspecified; I25.110 Atherosclerotic heart disease of native coronary artery with unstable angina pectoris; I44.30 Unspecified atrioventricular block; I44.7 Left bundle-branch block, unspecified; Z82.49 Family history of ischemic heart disease and other diseases of the circulatory system
CPT/HCPCS: 71010; 78452; 80048; 80053; 80061; 80307; 82550; 83690; 83735; 84484; 85025; 85027; 85610; 85730; 93005; 93017; 93306; 93458; 96365; 96366; 96375; A9502; C1769; C1893; J1644; J2250; J2785; J3010; J7040; Q9967